=== PATIENT | female | born 1980 | race Two or more races ===

== ENCOUNTER 2016-08-12 17:30 | Observation (INO) | payer MEDICAID, OTHER ==
[~2016-08-12 17:30] MED LIST: DOC100C PO
[2016-08-12 18:50] LABS: Urine Bilirubin Negative (Negative); Urine Blood 2+ /uL (Negative); Urine Color Yellow (Yellow); Urine Glucose Normal (Normal); Urine Ketone Negative (Negative); Urine Mucus FEW (None Seen); Urine Nitrite Negative (Negative); Urine RBC 212 /hpf (0 - 4); Urine Squamous Epithelial Cell FEW /hpf (<5); Urine Urobilinogen Normal (Negative); Urine pH 6.5 (5.0-8.0)
== END 2016-08-12 19:05 | disposition home or self-care (01) | DRG 955 ==
LOC: LDRP 17:30
PROVIDERS: ADMIT Obstetrics & Gynecology; ATTEND Obstetrics & Gynecology
DX: O23.40 Unspecified infection of urinary tract in pregnancy, unspecified trimester (principal); O26.899 Other specified pregnancy related conditions, unspecified trimester; M54.5 Low back pain; Z3A.00 Weeks of gestation of pregnancy not specified
CPT/HCPCS: 59025; 81001; 81002; 87086; G0378

== ENCOUNTER 2016-11-03 16:05 | Observation (INO) | payer MEDICAID | END 2016-11-03 17:15 | disposition home or self-care (01) | DRG 566 | LOC: LDRP 16:05 | PROVIDERS: ADMIT Specialist; ATTEND Specialist | DX: O24.410 Gestational diabetes mellitus in pregnancy, diet controlled (principal); O26.893 Other specified pregnancy related conditions, third trimester; R51 Headache; Z3A.32 32 weeks gestation of pregnancy | CPT/HCPCS: 59025; 81002; 82948; 82962; G0378 ==

== ENCOUNTER 2016-11-23 10:30 | Observation (INO) | payer MEDICAID | END 2016-11-23 11:42 | disposition home or self-care (01) | DRG 566 | LOC: LDRP 10:30 | PROVIDERS: ADMIT Obstetrics & Gynecology; ATTEND Obstetrics & Gynecology | DX: O24.419 Gestational diabetes mellitus in pregnancy, unspecified control (principal); Z3A.35 35 weeks gestation of pregnancy | CPT/HCPCS: 59025; 76805; 76818; 81002; G0378 ==

== ENCOUNTER 2016-11-30 12:20 | Observation (INO) | payer MEDICAID | END 2016-11-30 14:00 | disposition home or self-care (01) | DRG 566 | LOC: LDRP 12:20 | PROVIDERS: ADMIT Obstetrics & Gynecology; ATTEND Obstetrics & Gynecology | DX: O26.893 Other specified pregnancy related conditions, third trimester (principal); Z3A.36 36 weeks gestation of pregnancy | CPT/HCPCS: 59025; 76818; 81002; 82962; G0378 ==

== ENCOUNTER 2016-12-03 13:52 | Observation (INO) | payer MEDICAID ==
[~2016-12-03] VITALS: Ht 157.5 cm; Wt 79.4 kg
[2016-12-03] MEDS ORDERED: TERBUTALINE SULFATE 1 MG/ML 1ML VIAL SC ONE ×2 (16:04→16:15)
== END 2016-12-03 16:56 | disposition home or self-care (01) | DRG 566 ==
LOC: LDRP 13:52
PROVIDERS: ADMIT Obstetrics & Gynecology; ATTEND Obstetrics & Gynecology
DX: O24.419 Gestational diabetes mellitus in pregnancy, unspecified control (principal); Z3A.37 37 weeks gestation of pregnancy
CPT/HCPCS: 59025; 76805; 76818; 81002; 82948; 82962; 96372; G0378; J3105

== ENCOUNTER 2016-12-08 14:00 | Observation (INO) | payer MEDICAID ==
[2016-12-08 17:47] LABS: Urine Bilirubin Negative (Negative); Urine Color Yellow (Yellow); Urine Glucose TRACE mg/dL (Normal); Urine Ketone Negative (Negative); Urine Mucus FEW (None Seen); Urine Nitrite Negative (Negative); Urine RBC 80 /hpf (0 - 4); Urine Squamous Epithelial Cell MOD /hpf (<5); Urine pH 6.5 (5.0-8.0)
[2016-12-08 17:51] LABS: Urine Blood 1+ /uL (Negative)
== END 2016-12-08 15:45 | disposition home or self-care (01) | DRG 566 ==
LOC: LDRP 14:00
PROVIDERS: ADMIT Obstetrics & Gynecology; ATTEND Obstetrics & Gynecology
DX: O24.410 Gestational diabetes mellitus in pregnancy, diet controlled (principal); Z3A.37 37 weeks gestation of pregnancy
CPT/HCPCS: 59025; 76818; 81001; 81002; G0378

== ENCOUNTER 2016-12-14 15:55 | Observation (INO) | payer MEDICAID | END 2016-12-14 17:10 | disposition home or self-care (01) | DRG 566 | LOC: LDRP 15:55 | PROVIDERS: ADMIT Obstetrics & Gynecology; ATTEND Obstetrics & Gynecology | DX: O24.419 Gestational diabetes mellitus in pregnancy, unspecified control (principal); Z3A.38 38 weeks gestation of pregnancy | CPT/HCPCS: 59025; 76818; 81002; G0378 ==

== ENCOUNTER 2019-02-19 12:10 | Emergency (ER) | payer MEDICAID ==
[~2019-02-19] VITALS: Ht 157.5 cm; Wt 70.8 kg
[~2019-02-19 12:10] MED LIST changes: +GLYB5TAB8 PO; +PREN1MIS PO
[2019-02-19 13:14] LABS: Urine Bacteria NONE SEEN /hpf (None Seen); Urine Blood 2+ /uL (Negative); Urine Mucus FEW (None Seen); Urine Specific Gravity 1.022 (1.001-1.035); Urine WBC 17 /hpf (0 - 5)
[2019-02-19 13:15] LABS: Basophils # (auto) 0 uL; Basophils % (auto) 0.4 % (0.0-2.0); Eosinophils # (auto) 0 uL; Eosinophils % (auto) 0.5 % (0.0-7.0); Hematocrit 40.5 % (36.0-46.0); Hemoglobin 13.6 g/dL (12.2-16.2); Lymphocytes # (auto) 1.9 uL; Lymphocytes % (auto) 26.9 % (10.0-50.0); Mean Corpuscular Hemoglobin 30.9 pg (28.0-32.0); Mean Corpuscular Hgb Conc. 33.7 g/dL (32.0-36.0); Mean Corpuscular Volume 91.8 fL (80.0-100.0); Monocytes # (auto) 0.5 uL; Monocytes % (auto) 7.1 % (0.0-12.0); Neutrophils # (auto) 4.7 uL; Neutrophils % (auto) 65.1 % (37.0-80.0); Platelet Count (auto) 307 10^3/uL (140-450); Red Blood Cells 4.41 10^6/uL (4.0-5.20); Red Cell Distribution Width 13.8 % (11.8-14.3); White Blood Cell 7.1 10^3/uL (4.4-10.8)
[2019-02-19] MEDS ORDERED: MECLIZINE HCL 25 MG TAB PO ONE (13:30)
[2019-02-19 13:33] LABS: Albumin 3.9 g/dL (3.4-5.0); BUN/Creatinine Ratio 12.2; Calcium 8.9 mg/dL (8.5-10.1); Potassium 3.8 mmol/L (3.5-5.1)
[2019-02-19 13:36] LABS: Bilirubin, Total 0.3 mg/dL (0.2-1.0); Total Protein 8.2 g/dL (6.4-8.2)
[2019-02-19 15:59] VITALS: BP 128/86
== END 2019-02-19 16:00 | disposition home or self-care (01) ==
LOC: ER 12:14
DX: F41.9 Anxiety disorder, unspecified (principal); N39.0 Urinary tract infection, site not specified; Z79.899 Other long term (current) drug therapy; Z98.51 Tubal ligation status
CPT/HCPCS: 36415; 70450; 80053; 81001; 81025; 85025; 93005; 99284; J8597

== ENCOUNTER 2023-09-16 20:36 | Emergency (ER) | payer MEDICAID ==
[~2023-09-16] VITALS: Ht 154.9 cm; Wt 74.7 kg
[2023-09-16 21:46] LABS: Basophils # (auto) 0 10 ^3/uL (0-0.2); Basophils % (auto) 0.4 % (0.0-2.0); Eosinophils # (auto) 0.3 10 ^3/uL (0-0.8); Eosinophils % (auto) 3.2 % (0.0-7.0); Hematocrit 38.2 % (36.0-46.0); Hemoglobin 12.8 g/dL (12.2-16.2); Lymphocytes # (auto) 2.6 10 ^3/uL (0.4-5.4); Lymphocytes % (auto) 27.8 % (10.0-50.0); Mean Corpuscular Hemoglobin 30.8 pg (28.0-32.0); Mean Corpuscular Hgb Conc. 33.5 g/dL (32.0-36.0); Monocytes # (auto) 0.7 10 ^3/uL (0-1.3); Monocytes % (auto) 7.8 % (0.0-12.0); Neutrophils # (auto) 5.6 10 ^3/uL (1.6-8.6); Neutrophils % (auto) 60.8 % (37.0-80.0); Red Blood Cells 4.15 10^6/uL (4.0-5.20); Red Cell Distribution Width 13.3 % (11.8-14.3); White Blood Cell 9.3 10^3/uL (4.4-10.8)
[2023-09-16 21:55] LABS: Anion Gap 9 (5-15); Carbon Dioxide 25 mmol/L (20-30); Chloride 104 mmol/L (98-107); Potassium 3.7 mmol/L (3.5-5.1); Sodium 138 mmol/L (136-145)
[2023-09-16 21:56] LABS: Calcium 9.7 mg/dL (8.5-10.1)
[2023-09-16 22:01] LABS: BUN/Creatinine Ratio 7.4 (10.0-20.0); Blood Urea Nitrogen 7 mg/dL (9-23); Glucose 100 mg/dL (74-106)
[2023-09-17 00:07] VITALS: BP 130/88; PULSE 82; RESP 17; TEMP 98; O2SAT 99
[2023-09-17] MEDS: ACETAMINOPHEN 325 MG TAB PO ONE (00:07)
== END 2023-09-17 00:31 | disposition home or self-care (01) ==
LOC: ER 20:36
DX: R10.32 Left lower quadrant pain (principal); R10.2 Pelvic and perineal pain; R51.9 Headache, unspecified; R42 Dizziness and giddiness; Z98.51 Tubal ligation status
CPT/HCPCS: 36415; 74176; 80048; 82962; 84702; 85025

== ENCOUNTER 2024-11-26 15:33 | Inpatient (IN) | payer MEDICAID ==
[~2024-11-26] VITALS: Ht 157.5 cm; Wt 81.3 kg
--- NOTE | 2024-11-26 16:02 | ED.PDOC ---
HPI Comments 44 y.o female presents to the ED for a chief complaint of left sided chest pain associated with palpitations, SOB, nausea, dizziness and left arm numbness x 1 day. Patient describes pain as a pressure sensation with cramping to the left side of her body, rating a 10/10 on the pain scale. Patient denies any vomiting, fever, chills, back pain, abdominal pain or recent trauma to pain sites. She denies any medical history and is not on any medication at home at this time. No tobacco, alcohol or substance use reported. Chief Complaint: Chest Pain Time Seen by MD: 15:42 Primary Care Provider: DENIES Reviewed Notes: Nurses Notes, Medications, Allergies Allergies: Coded Allergies: No Known Drug Allergy (Verified Allergy, Unknown, 08/01/15) Home Meds Active Scripts Docusate Sodium (COLACE CAPSULE) 100 Mg Cp, 100 MG PO BID, #60 CP Prov:ROSEANN FINLEY MD 08/04/15 Reported Medications Vit W/ Ferrous Fumara (Pnv Plus Multivi 27-1 & 312 mg) 1 Mis Mis, 1 TAB PO DAILY 12/17/16 Glyburide (Glyburide) 5 Mg Tab, 5 MG PO DAILY for 30 Days, MG 12/17/16 Information Source: Patient Mode of Arrival: Ambulatory Severity: Moderate Timing: Days (1) Duration: Since onset Location: Chest (L) Quality: Pressure Onset: At Rest Cardiac Risk Factors: None PE Risk Factors: None History of: None Modifying Factors: Nothing Associated Signs and Symptoms: SOB, Palpitations, N/V Past Medical History PAST MEDICAL HISTORY: Denies Surgical History: Appendectomy, , 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 Family History Family History: Reviewed,noncontributory to illness Social History Smoker: Non-Smoker Alcohol: Denies ETOH Use Drugs: Denies Drug Use Lives In: Home Constitutional: denies: chills, diaphoresis, fatigue, fever, malaise, sweats, weakness, others EENTM: denies: blurred vision, double vision, ear bleeding, ear discharge, ear drainage, ear pain, ear ringing, eye pain, eye redness, hearing loss, mouth pain, mouth swelling, nasal discharge, nose bleeding, nose congestion, nose pain, photophobia, tearing, throat pain, throat swelling, voice changes, others Respiratory: reports: SOB at rest, shortness of breath; denies: cough, hemoptysis, orthopnea, SOB with excertion, stridor, wheezing, others Cardiovascular: reports: chest pain, left arm pain, palpitations; denies: dizzy spells, diaphoresis, Dyspnea on exertion, edema, irregular heart beat, lightheadedness, PND, syncope, others Gastrointestinal: reports: nausea; denies: abdomen distended, abdominal pain, blood streaked bowels, constipated, diarrhea, dysphagia, difficulty swallowing, hematemesis, melena, poor appetite, poor fluid intake, rectal bleeding, rectal pain, vomiting, others Genitourinary: denies: abnormal vagina bleeding, burning, dyspareunia, dysuria, flank pain, frequency, hematuria, incontinence, pain, , vagina discharge, urgency, others Neurological: denies: dizziness, fainting, headache, left sided numbness, left sided weakness, numbness, paresthesia, pre-existing deficit, right sided numbness, right sided weakness, seizure, speech problems, tingling, tremors, weakness, others Musculoskeletal: denies: back pain, gout, joint pain, joint swelling, muscle pain, muscle stiffness, neck pain, others Integumetry: denies: bruises, change in color, change in hair/nails, dryness, laceration, lesions, lumps, rash, wounds, others Allergic/Immunocompromised: denies: Difficulty Healing, Frequent Infections, Hives, Itching, others Hematologic/Lymphatic: denies: anemia, blood clots, easy bleeding, easy bruising, swollen glands, others Endocrine: denies: excessive hunger, excessive sweating, excessive thirst, excessive urination, flushing, intolerance to cold, intolerance to heat, unexplained weight gain, unexplained weight loss, others Psychiatric: denies: anxiety, bipolar disorder, depression, hopeless, panic disorder, schizophrenia, sleepless, suicidal, others All Other Systems: Reviewed and Negative Physical Exam General Appearance: Moderate Distress HEENT: Normal ENT Inspection, Pharynx Normal, TMs Normal Neck: Full Range of Motion, Non-Tender, Normal, Normal Inspection Respiratory: Chest Non-Tender, Lungs Clear, No Accessory Muscle Use, No Respiratory Distress, Normal Breath Sounds Cardiovascular: No Edema, No JVD, No Murmur, No Gallop, Normal Peripheral Pulses, Regular Rate/Rhythm Breast Exam: Deferred Gastrointestinal: No Organomegaly, Non Tender, No Pulsatile Mass, Normal Bowel Sounds, Soft Genitalia: Deferred Pelvic: Deferred Rectal: Deferred Extremities: No calf tenderness, Normal capillary refill, Normal inspection, Normal range of motion, Non-tender, No pedal edema Musculoskeletal : Apperance: Normal Neurologic: Alert, cotton ball machine tender II-XII nml as Tested, No Motor Deficits, Normal Affect, Normal Mood, No Sensory Deficits Cerebellar Function: Normal Reflexes: Normal Skin: Dry, Normal Color, Warm Lymphatic: No Adenopathy EKG EKG : Pulse Rate (adult): 81 Cardiac Rhythm: NSR Was a procedure done? Was a procedure done?: No CP Differential Dx Differential Diagnosis: Anxiety / Panic Attack, Electrolyte Disorder, Sinus Tachycardia Differential Diagnosis: Angina, Aortic dissection, Chest Wall Pain, Cholelithiasis, Costochondritis, Esophageal reflux/spasm, Gastritis, Myocardial Infarction, Pericarditis X-Ray, Labs, Meds, VS Vital Signs Date Time Temp Pulse Resp B/P (MAP) Pulse Ox O2 Delivery O2 Flow Rate FiO2 11/26/24 19:26 97.7 66 20 121/75 (90) 99 97.7 11/26/24 18:00 97.7 66 20 120/72 (88) 98 97.7 11/26/24 17:45 69 11/26/24 16:02 81 11/26/24 15:55 98.0 79 20 121/70 (87) 100 98.0 11/26/24 15:47 81 Lab Test 11/26/24 16:53 11/26/24 15:54 Range/Units Troponin I High Sensitivity < 3 L < 3 L </=34 ng/L White Blood Count 6.9 4.4-10.8 10^3/uL Red Blood Count 4.17 4.0-5.20 10^6/uL Hemoglobin 12.7 12.2-16.2 g/dL Hematocrit 37.2 36.0-46.0 % Mean Corpuscular Volume 89.2 80.0-100.0 fL Mean Corpuscular Hemoglobin 30.4 28.0-32.0 pg Mean Corpuscular Hemoglobin Concent 34.1 32.0-36.0 g/dL Red Cell Distribution Width 14.0 11.8-14.3 % Platelet Count 296 140-450 10^3/uL Mean Platelet Volume 8.9 6.9-10.8 fL Neutrophils (%) (Auto) 54.9 37.0-80.0 % Lymphocytes (%) (Auto) 34.5 10.0-50.0 % Monocytes (%) (Auto) 8.0 0.0-12.0 % Eosinophils (%) (Auto) 2.2 0.0-7.0 % Basophils (%) (Auto) 0.4 0.0-2.0 % Neutrophils # (Auto) 3.8 1.6-8.6 10 ^3/uL Lymphocytes # (Auto) 2.4 0.4-5.4 10 ^3/uL Monocytes # (Auto) 0.6 0-1.3 10 ^3/uL Eosinophils # (Auto) 0.2 0-0.8 10 ^3/uL Basophils # (Auto) 0 0-0.2 10 ^3/uL Nucleated Red Blood Cells 0.0 % D-Dimer, Quantitative 1.15 H 0.0-0.49 mg/L FEU Sodium Level 143 136-145 mmol/L Potassium Level 3.8 3.5-5.1 mmol/L Chloride Level 108 H 98-107 mmol/L Carbon Dioxide Level 26 20-31 mmol/L Anion Gap 9 5-15 Blood Urea Nitrogen 8 L 9-23 mg/dL Creatinine 1.13 H 0.550-1.02 mg/dL Glomerular Filtration Rate Calc 62 >90 mL/min BUN/Creatinine Ratio 7.1 L 10.0-20.0 Serum Glucose 107 H 74-106 mg/dL Calcium Level 9.8 8.7-10.4 mg/dL IV Hep-Lock was established The patient's CBC is within normal limits The D-dimer is 0.15 chemistry panel is within limits The troponin level x2 is negative The patient is saturating at 99-100% The chest x-ray is negative The patient is being admitted at this time Images Reviewed?: Images reviewed and evaluated by me Time of 1ST Reevaluation: 17:00 Reevaluation 1ST: Unchanged Patient Education/Counseling: Diagnosis, Treatment, Prognosis Family Education/Counseling: No Family Present SEPSIS Sepsis Screen Physician Orders Chest Portable (11/26/24 15:47) Heplock Iv (11/26/24 15:47) String Winding Machine Operator (11/26/24 15:47) Blood Pressure (11/26/24 15:47) Pulse Oximetry (11/26/24 15:47) Electrocardigram (11/26/24 16:47) Electrocardigram (11/26/24 18:47) Test, Urine (11/26/24 15:47) Aspirin Tablet (11/27/24 10:00) Allergies (11/26/24 19:44) Code Status (11/26/24 19:44) Sodium Chloride Lock (Saline Lock Ns) (11/26/24 22:00) Oxygen Per Hour (11/26/24 19:44) Hydrocodone-Acet 5/325mg Tab (Hollister 5/32 (11/26/24 19:45) Ondansetron Hcl (Zofran) (11/26/24 19:45) Docusate Sodium Capsule (Colace Capsule) (11/26/24 19:45) Complete Blood Count (11/27/24 04:00) Comprehensive Metabolic Panel (11/27/24 04:00) Cardiac Diet-2gna,Lofat,Lochol (11/27/24 Breakfast) Condition: Serious (11/26/24 19:44) Acetaminophen Tablet (Tylenol Tablet) (11/26/24 19:45) Bedrest With Bathroom Privileg (11/26/24 19:44) Sequential Compression Device (11/26/24 ) Vital Signs Date Time Temp Pulse Resp B/P (MAP) Pulse Ox O2 Delivery O2 Flow Rate FiO2 11/26/24 19:26 97.7 66 20 121/75 (90) 99 97.7 11/26/24 18:00 97.7 66 20 120/72 (88) 98 97.7 11/26/24 17:45 69 11/26/24 16:02 81 11/26/24 15:55 98.0 79 20 121/70 (87) 100 98.0 11/26/24 15:47 81 Laboratory Tests Test 11/26/24 15:54 White Blood Count 6.9 10^3/uL (4.4-10.8) Departure 1 Departure Time of Disposition: 20:15 Impression: Primary Impression: Acute myocardial ischemia Disposition: 09 ADMITTED INPATIENT Admit to: Tele Condition: Fair Critical Care Note Critical Care Time?: Yes (45 min-critical care time only) Stability Stability form required: Yes Unstable for transfer: Telemetry monitoring (Telemetry monitoring required), ED Physician Assesment (Clinical assesment) Heart Score Heart Score: Heart Score Response (Comments) Value History Slightly Suspicious 0 EKG Normal 0 Age <45 0 Risk Factors No known risk factors 0 Troponin Normal limit 0 Total 0 I personally scribed for MOON DUPREE MD ([email or web address]) on 11/26/24 at 16:02. Electronically submitted by Veronica Roa ([facility]). MOON DUPREE MD Nov 26, 2024 16:02
[2024-11-26 16:12] LABS: Hematocrit 37.2 % (36.0-46.0); Hemoglobin 12.7 g/dL (12.2-16.2); Mean Corpuscular Hemoglobin 30.4 pg (28.0-32.0); Mean Corpuscular Volume 89.2 fL (80.0-100.0); Nucleated Red Blood Cells % 0.0 %
[2024-11-26 16:24] LABS: Potassium 3.8 mmol/L (3.5-5.1); Sodium 143 mmol/L (136-145)
[2024-11-26 16:25] LABS: Anion Gap 9 (5-15); Carbon Dioxide 26 mmol/L (20-31)
[2024-11-26 16:26] LABS: Calcium 9.8 mg/dL (8.7-10.4)
[2024-11-26 16:28] LABS: Chloride 108 mmol/L (98-107)
[2024-11-26 16:30] LABS: BUN/Creatinine Ratio 7.1 (10.0-20.0)
[2024-11-26 16:31] LABS: Blood Urea Nitrogen 8 mg/dL (9-23); Glucose 107 mg/dL (74-106)
--- NOTE | 2024-11-26 17:47 | ECG ---
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
[2024-11-26] MEDS ORDERED: DOCUSATE SOD 100 MG CAP PO PRN (19:45)
--- NOTE | 2024-11-26 20:04 | DVH ---
CHEST RADIOGRAPH Indication: cp Technique: Single frontal view of the chest was obtained COMPARISON: None FINDINGS: Lines and Tubes: None Lungs: Clear. Evidence of small calcified granuloma at the right lung apex. Pleura: No pleural effusion. No pneumothorax. Cardiomediastinal contours: Unremarkable Bones: Unremarkable IMPRESSION: No abnormality.
--- NOTE | 2024-11-26 21:56 | DVHHP2 ---
History of Present Illness Reason for Visit: Acute chest pain History of Present Illness The patient is a 44-year-old female who denies past medical history presented to [facility] ED with complaint of left-sided chest pain. Patient reports she has been experiencing midsternal chest pain, radiating to the left shoulder, left arm, rating 10/10 numeric scale, associated with numbness, getting worse that prompted this visit. Patient was seen and evaluated in the ED, laboratory data shows WBC 6.9, platelets 296, sodium 143, potassium 3.8, BUN 8, creatinine 1.13, GFR 62, glucose 107, calcium 9.6, troponin < 3, D-dimer 1.15, blood pressure 121/75, heart rate 66, temperature 97.7 F, O2 saturation 9 9% on room air. Chest x-ray show no acute disease. Patient was given aspirin 325 mg p.o. x1, please see medication orders section in the computer. On my assessment patient denied chest pain at this moment, no headache, no dizziness, no diaphoresis, no shortness of breath, no nausea, no vomiting, no fever, no chills. Patient was admitted for further evaluation and medical management. Past Medical History Denies past medical history Past Surgical History Appendectomy, , Tubal Ligation, Ectopic Family History Reviewed, noncontributory to the management of this case. Past Social History The patient lives at home, denies smoking, alcohol or illicit drugs abuse. Review of Systems Constitutional: No: Fever, Chills, Sweats, Weakness, Malaise, Other Eyes: No: Pain, Vision change, Conjunctivae inflammation, Eyelid inflammation, Other, Redness ENT: No: Ear pain, Ear discharge, Nose pain, Nose discharge, Nose congestion, Mouth pain, Mouth swelling, Throat pain, Throat swelling, Other Respiratory: Shortness of breath, Other (SOB at rest); No: Cough, Dry, SOB with excertion, Wheezing, Hemoptysis, Pleuritic Pain, Sputum, Wheezing Cardiovascular: Chest Pain, Palpitations, Other (Left arm pain); No: Orthopnea, Paroxysmal Noc. Dyspnea, Edema, Lt Headedness Gastrointestinal: No: Nausea, Vomiting, Abdominal Pain, Diarrhea, Constipation, Melena, Hematochezia, Other Genitourinary: No Dysuria, No Frequency, No Incontinence, No Hematuria, No Retention, No Other Musculoskeletal: No: other, neck pain, shoulder pain, arm pain, back pain, hand pain, leg pain, foot pain Skin: No: Rash, Lesions, Jaundice, Bruising, Other Neurological: No: Weakness, Numbness, Incoordination, Change in speech, Confusion, Seizures, Other Allergies: Coded Allergies: No Known Drug Allergy (Verified Allergy, Unknown, 08/01/15) Medications Current Medications Medications Dose Ordered Sig/Kyle Route Start Time Stop Time Status Last Admin Dose Admin Aspirin 81 mg DAILY PO 11/27/24 10:00 Sodium Chloride 10 ml Q8HR IV 11/26/24 22:00 Acetaminophen/ Hydrocodone Bitart 1 tab Q4HP PRN PO 11/26/24 19:45 Ondansetron HCl 4 mg Q4HP PRN IV 11/26/24 19:45 Docusate Sodium 100 mg BIDPRN PRN PO 11/26/24 19:45 Acetaminophen 650 mg Q6HP PRN PO 11/26/24 19:45 Exam Vital Signs Vital Signs Date Time Temp Pulse Resp B/P (MAP) Pulse Ox O2 Delivery O2 Flow Rate FiO2 11/26/24 19:26 97.7 66 20 121/75 (90) 99 97.7 General Appearance: Alert, Oriented X3, Cooperative, No acute distress HEENT: Atraumatic, PERRLA, EOMI, Mucous membr. moist/pink Respiratory: Clear to auscultation, Normal air movement Cardiovascular: Normal S1, Normal S2, No murmurs, Other (Irregular rate) Abdominal: Normal bowel sounds, Soft, No tenderness, No hepatospenomegaly, No masses Extremities: No clubbing, No cyanosis, No edema, Normal pulses, No tenderness/swelling Skin: No breakdown, No significant lesion Neuro: Normal gait, Normal speech, Strength at 5/5 X4 ext, Normal tone, Sensation intact, Cranial nerves 3-12 NL, Reflexes 2+ Psych/Mental Status: Mental status NL, Mood NL Labs/Xrays Labs Test 11/26/24 16:53 11/26/24 15:54 Range/Units Troponin I High Sensitivity < 3 L </=34 ng/L White Blood Count 6.9 4.4-10.8 10^3/uL Red Blood Count 4.17 4.0-5.20 10^6/uL Hemoglobin 12.7 12.2-16.2 g/dL Hematocrit 37.2 36.0-46.0 % Mean Corpuscular Volume 89.2 80.0-100.0 fL Mean Corpuscular Hemoglobin 30.4 28.0-32.0 pg Mean Corpuscular Hemoglobin Concent 34.1 32.0-36.0 g/dL Red Cell Distribution Width 14.0 11.8-14.3 % Platelet Count 296 140-450 10^3/uL Mean Platelet Volume 8.9 6.9-10.8 fL Neutrophils (%) (Auto) 54.9 37.0-80.0 % Lymphocytes (%) (Auto) 34.5 10.0-50.0 % Monocytes (%) (Auto) 8.0 0.0-12.0 % Eosinophils (%) (Auto) 2.2 0.0-7.0 % Basophils (%) (Auto) 0.4 0.0-2.0 % Neutrophils # (Auto) 3.8 1.6-8.6 10 ^3/uL Lymphocytes # (Auto) 2.4 0.4-5.4 10 ^3/uL Monocytes # (Auto) 0.6 0-1.3 10 ^3/uL Eosinophils # (Auto) 0.2 0-0.8 10 ^3/uL Basophils # (Auto) 0 0-0.2 10 ^3/uL Nucleated Red Blood Cells 0.0 % D-Dimer, Quantitative 1.15 H 0.0-0.49 mg/L FEU Sodium Level 143 136-145 mmol/L Potassium Level 3.8 3.5-5.1 mmol/L Chloride Level 108 H 98-107 mmol/L Carbon Dioxide Level 26 20-31 mmol/L Anion Gap 9 5-15 Blood Urea Nitrogen 8 L 9-23 mg/dL Creatinine 1.13 H 0.550-1.02 mg/dL Glomerular Filtration Rate Calc 62 >90 mL/min BUN/Creatinine Ratio 7.1 L 10.0-20.0 Serum Glucose 107 H 74-106 mg/dL Calcium Level 9.8 8.7-10.4 mg/dL PATIENT: ARTHUR CANO DACCT: [id number] UNIT: [id number] : 1980 LOC: ER ROOM / BED: / AGE / SEX: 44 / F ADM STATUS: REG ER SERVICE 1547 ORDERING PHYSICIAN: MOON DUPREE MD PROCEDURE(s): CXRP - CHEST PORTABLE REASON: cp ORDER NUMBER(s): [id number], ACCESSION NUMBER(s): [id number] CHEST RADIOGRAPH Indication: cp Technique: Single frontal view of the chest was obtained COMPARISON: None FINDINGS: Lines and Tubes: None Lungs: Clear. Evidence of small calcified granuloma at the right lung apex. Pleura: No pleural effusion. No pneumothorax. Cardiomediastinal contours: Unremarkable Bones: Unremarkable IMPRESSION: No abnormality. Assessment/Plan Assessment/Plan Acute chest pain Elevated D-dimer Acute myocardial ischemia Plan 1. Admit to telemetry unit 2. Breathing treatment 3. Pain control management 4. Management of fluids and electrolytes 5. Consultation for hospitalist 6. Diagnostic tests CT angiography chest 7. DVT prophylaxis on aspirin 8. Repeat labs CBC, CMP in a.m. 9. Continue with current medical management 10. Treatment plan discussed with patient and RN. Patient verbalized understanding. Plan discussed with: Patient, Other (RN) My Orders Orders - ZULEMA FLORES DNP Procedure Category Date Status Time Aspirin Tablet PHA 11/27/24 In Process 10:00 Allergies EDY 11/26/24 In Process 19:44 Code Status CODE 11/26/24 Transmitted 19:44 Sodium Chloride Lock PHA 11/26/24 In Process (Saline Lock Ns) 22:00 Oxygen Per Hour RT 11/26/24 Transmitted 19:44 Hydrocodone-Acet PHA 11/26/24 In Process 5/325mg Tab (Diana 19:45 Ondansetron Hcl PHA 11/26/24 In Process (Zofran) 19:45 Docusate Sodium PHA 11/26/24 In Process Capsule (Colace 19:45 Complete Blood Count LAB 11/27/24 Verified 04:00 Comprehensive LAB 11/27/24 Verified Metabolic Panel 04:00 Cardiac DIET 11/27/24 Transmitted Diet-2gna,Lofat,Lochol Breakfast Condition: Serious EDY 11/26/24 In Process 19:44 Acetaminophen Tablet PHA 11/26/24 In Process (Tylenol Tablet) 19:45 Bedrest With Bathroom EDY 11/26/24 In Process Privileg 19:44 Sequential EDY 11/26/24 In Process Compression Device Admit ADMIT 11/26/24 Verified 21:55 Nitroglycerin [facility] 11/26/24 Verified Sublingual (Ntrostat 22:00 Morphine Sulfate [facility] 11/26/24 Verified Injection 22:00 Stat Ekg For Chest [facility] 11/26/24 Verified Pain 21:55 Notify Md Of Changes [facility] 11/26/24 Verified From Base 21:55 Heel Sprayer For [facility] 11/26/24 Verified 24 Hours 21:55 Emergency Dysrhythmia [facility] 11/26/24 Verified Protocol 21:55 Rhythm Strips Once [facility] 11/26/24 Verified Every Shift 21:55 Oxygen By Nasal 11/26/24 Verified Cannula 21:55 Problem List: (1) Acute chest pain (2) Elevated d-dimer (3) Acute myocardial ischemia Date of Service: Nov 26, 2024 Billing Provider: ZULEMA FLORES DNP Common Visit Codes: [id number] INP/OBS CARE (HIGH) ZULEMA FLORES DNP Nov 26, 2024 21:56
[2024-11-26] MEDS ORDERED: MORPHINE SULFATE INJ 2 MG/ml SYRG IV PRN (22:00)
[2024-11-26] MEDS: NITROGLYCERIN 0.4 MG SL TAB SL PRN (23:17)
[2024-11-26] MEDS: SODIUM CHLOR 0.9% PF (SALINE LOCK) 10ML VIAL/SYR IV SCH (23:39)
[2024-11-26] MEDS: IOHEXOL 350 MG/ML 100ML IJ ONE (23:50)
[2024-11-27] VITALS (8 sets, daily range): BP systolic 102–126; BP diastolic 62–80; PULSE 50–84; RESP 16–18; TEMP 97.5–98.3; O2SAT 94–99
--- NOTE | 2024-11-27 01:10 | DVH ---
CTA Chest with intravenous contrast INDICATION: Elevated D-dimer COMPARISON: None TECHNIQUE: Multidetector spiral CTA of the chest was performed of the chest with intravenous contrast . PULMONARY ANGIOGRAPHY PROTOCOL was utilized using a bolus-tracking technique centered on the main p ulmonary artery. Axial, coronal and sagittal multiplanar and MIP reformats were performed. Radiation Dose : 1. Chest: CTDI volume is 26.43 mGy. Dose-length product is 1046.03 mGy*cm The dose indicators for CT are the volume Computed Tomography (CT) Dose Index (CTDIvol) and the Dose Length Product (DLP), and are measured in units of mGy and mGy-cm, respectively. These indicators are not patient dose, but values generated from the CT scanner acquisition factors. The report includes radiation exposure data for exposures received during this examination. Findings: Pulmonary artery: No pulmonary embolism. The main pulmonary artery measures 2.3 cm and the ascending thoracic aorta measures 2.8 cm. Lower neck: Normal thyroid. Lungs: No focal consolidation, pleural effusion or pneumothorax. Lateral right apical calcified granu flavia. Heart/Vascular Structures: Normal heart size. No pericardial effusion. Lymph Nodes: No adenopathy Musculoskeletal: No acute osseous abnormality. Soft tissues: Normal. Upper abdomen: Limited portions of the upper abdomen are unremarkable. IMPRESSION: 1. No pulmonary embolism. 2. No acute thoracic finding.
[2024-11-27 06:35] LABS: Hematocrit 39.6 % (36.0-46.0); Hemoglobin 13.5 g/dL (12.2-16.2); Mean Corpuscular Hemoglobin 30.8 pg (28.0-32.0); Mean Corpuscular Volume 90.2 fL (80.0-100.0); Nucleated Red Blood Cells % 0.1 %
[2024-11-27 06:53] LABS: Alanine Aminotransferase 37 U/L (7-40); Albumin 4.2 g/dL (3.2-4.8); Alkaline Phosphatase 86 U/L (46-116); BUN/Creatinine Ratio 9.9 (10.0-20.0); Blood Urea Nitrogen 9 mg/dL (9-23); Calcium 9.5 mg/dL (8.7-10.4); Chloride 104 mmol/L (98-107); Glucose 105 mg/dL (74-106); Potassium 4.0 mmol/L (3.5-5.1); Sodium 140 mmol/L (136-145); Total Protein 7.4 g/dL (5.7-8.2)
[2024-11-27 06:57] LABS: Bilirubin, Total 0.2 mg/dL (0.2-1.0)
[2024-11-27 07:00] LABS: Anion Gap 10 (5-15); Carbon Dioxide 26 mmol/L (20-31)
--- NOTE | 2024-11-27 13:06 | DVHPN2 ---
Reviewed: Care Plan, H&P, Labs, Medications, Previous Orders, Radiology Changes from previous H/P or p: No Changes Eyes: No Pain, No Vision change, No Conjunctivae inflammation, No Eyelid inflammation, No Other, No Redness ENT: No Ear pain, No Ear discharge, No Nose pain, No Nose discharge, No Nose congestion, No Mouth pain, No Mouth swelling, No Throat pain, No Throat swelling, No Other Cardiovascular: Chest Pain, Palpitations; No Orthopnea, No Paroxysmal Noc. Dyspnea, No Edema, No Lt Headedness; Other (Left arm pain) Respiratory: No Cough, No Dry; Shortness of breath; No SOB with excertion, No Wheezing, No Hemoptysis, No Pleuritic Pain, No Sputum; Other (SOB at rest) Gastrointestinal: No Nausea, No Vomiting, No Abdominal Pain, No Diarrhea, No Constipation, No Melena, No Hematochezia, No Other Genitourinary: No Dysuria, No Frequency, No Incontinence, No Hematuria, No Retention, No Other Musculoskeletal: No other, No neck pain, No shoulder pain, No arm pain, No back pain, No hand pain, No leg pain, No foot pain Skin: No Rash, No Lesions, No Jaundice, No Bruising, No Other Objective Vitals Vital Signs Date Time Temp Pulse Resp B/P (MAP) Pulse Ox O2 Delivery O2 Flow Rate FiO2 11/27/24 12:38 97.9 67 16 113/71 (85) 99 97.9 11/27/24 08:00 Room Air* 0 21 Intake/Output Intake and Output 11/27/24 07:00 Intake Total 0 ml Balance 0 ml Intake Oral 0 ml Medications Current Medications Medications Dose Ordered Sig/Kyle Route Start Time Stop Time Status Last Admin Dose Admin Aspirin 81 mg DAILY PO 11/27/24 10:00 11/27/24 09:51 81 MG Sodium Chloride 10 ml Q8HR IV 11/26/24 22:00 11/27/24 06:00 10 ML Acetaminophen/ Hydrocodone Bitart 1 tab Q4HP PRN PO 11/26/24 19:45 Ondansetron HCl 4 mg Q4HP PRN IV 11/26/24 19:45 Docusate Sodium 100 mg BIDPRN PRN PO 11/26/24 19:45 Acetaminophen 650 mg Q6HP PRN PO 11/26/24 19:45 Nitroglycerin 0.4 mg Q5MINP PRN SL 11/26/24 22:00 11/26/24 23:17 0.4 MG Morphine Sulfate 2 mg Q30M PRN IV 11/26/24 22:00 Laboratory Results Laboratory Tests 11/27/24 05:55 Chemistry Test 11/26/24 15:54 11/27/24 05:55 Calcium Level 9.8 mg/dL (8.7-10.4) 9.5 mg/dL (8.7-10.4) Albumin 4.2 g/dL (3.2-4.8) Total Protein 7.4 g/dL (5.7-8.2) Coagulation Test 11/26/24 15:54 D-Dimer, Quantitative 1.15 mg/L FEU (0.0-0.49) H LFT Test 11/27/24 05:55 Alanine Aminotransferase (ALT) 37 U/L (7-40) Alkaline Phosphatase 86 U/L (46-116) Aspartate Amino Transferase (AST) 21 U/L (13-40) Total Bilirubin 0.2 mg/dL (0.2-1.0) Urinalysis Test 11/26/24 15:54 Urine Test Pending Labs and/or images reviewed: Labs reviewed by me, Image(s) reviewed by me Assessment/Plan Assessment/Plan Chest pain probably noncardiac: Troponin negative x3 cardiology consult for , will check urine drug screen, TSH, lipid panel Elevated D-dimer 1.15, PE ruled out Plan discussed with: Patient My Orders Orders - MIA ELIZONDO MD Procedure Category Date Status Time * Cardiology Consult CONS 11/27/24 Verified 13:02 Date of Service: Nov 27, 2024 Billing Provider: MIA ELIZONDO MD Common Visit Codes: [id number] INP/OBS CARE(HIGH) MIA ELIZONDO MD Nov 27, 2024 13:06
[2024-11-27 13:38] LABS: HDL Cholesterol 42 mg/dL (40-59); Triglycerides 292 mg/dL (< 150)
[2024-11-27 13:39] LABS: Cholesterol 221 mg/dL (< 200)
[2024-11-27] MEDS: ONDANSETRON HCL 4 MG/2 ML VIAL IV PRN (13:51)
--- NOTE | 2024-11-27 15:02 | DVH ---
CLINICAL INFORMATION: Persistent headache. TECHNIQUE: Axial imaging was obtained through the brain without contrast. Coronal and sagittal reform atted images were obtained, reviewed, and stored. Images were reviewed in brain and bone windows. Al l CT scans at this medical facility are performed using dose modulation techniques as appropriate to a performed exam including the following: Automated exposure control was utilized; adjustment of the MA and/or KV according to patient size; and use of iterative reconstruction technique. CTDIvol = 53.1 4 mGy DLP = 959.68 mGy-cm COMPARISON: HEAD WITHOUT CONTRAST on DOS: 02/19/19 FINDINGS: There is no acute intracranial hemorrhage. No mass effect or midline shift. The ventricles and sulci are within normal limits in size for age. Basal cisterns are patent. The calvarium is unre markable. Paranasal sinuses and mastoid air cells are clear. IMPRESSION: No CT evidence of acute intracranial abnormality.
--- NOTE | 2024-11-27 15:03 | DVHINCON2 ---
Date Seen: Nov 27, 2024 Referring Physician MD Jaden Reason for Consultation Chest pain History of Present Illness This is a pleasant 44-year-old Azeri speaking mostly female who presented to the emergency room with a chief complaint of chest pain since Tuesday. Describes the chest pain as left-sided, unprovoked radiating to her left lip as a numbness sensation, radiating to the left upper and lower extremity as a tingling sensation, and persistent until yesterday. The patient also reports a persistent headache for the past two months. At time of assessment she denied any further chest pain but did complain of tingling to her left fingers and left lower extremity. She underwent a 12 lead electrocardiogram revealing a normal sinus rhythm. Serial troponin levels are negative. Denies any past medical history. Past Medical History Past medical history reviewed. No other significant than mentioned above. Past Surgical History Appendectomy Bilateral tubal ligation Ectopic Family History: Family history: Hypertension Family History Family history reviewed. Social History Denies the use of illicit drugs, alcohol, or tobacco use. Allergies: Coded Allergies: No Known Drug Allergy (Verified Allergy, Unknown, 08/01/15) Home Meds Active Scripts Docusate Sodium (COLACE CAPSULE) 100 Mg Cp, 100 MG PO BID, #60 CP Prov:ROSEANN FINLEY MD 08/04/15 Reported Medications Vit W/ Ferrous Fumara (Pnv Plus Multivi 27-1 & 312 mg) 1 Mis Mis, 1 TAB PO DAILY 12/17/16 Glyburide (Glyburide) 5 Mg Tab, 5 MG PO DAILY for 30 Days, MG 12/17/16 Home Meds Home medications reviewed. Current Medications Current Medications Medications (Trade) Dose Ordered Sig/Kyle Route PRN Reason Start Time Stop Time Status Last Admin Aspirin 81 mg DAILY PO 11/27/24 10:00 11/27/24 09:51 Sodium Chloride (Saline Lock Ns) 10 ml Q8HR IV 11/26/24 22:00 11/27/24 13:55 Acetaminophen/ Hydrocodone Bitart ([place] 5/325MG Tab) 1 tab Q4HP PRN PO MODERATE PAIN (4-6 PAIN SCALE) 11/26/24 19:45 Ondansetron HCl (Zofran) 4 mg Q4HP PRN IV NAUSEA / VOMITING 11/26/24 19:45 11/27/24 13:51 Docusate Sodium (Colace Capsule) 100 mg BIDPRN PRN PO FOR CONSTIPATION 11/26/24 19:45 Acetaminophen (Tylenol Tablet) 650 mg Q6HP PRN PO PAIN SCALE 1-3 OR TEMP>100.4 11/26/24 19:45 Nitroglycerin (Ntrostat Sublingual) 0.4 mg Q5MINP PRN SL FOR CHEST PAIN 11/26/24 22:00 11/26/24 23:17 Morphine Sulfate 2 mg Q30M PRN IV FOR CHEST PAIN 11/26/24 22:00 Review of Systems Constitutional: No symptom reported Ears, Nose, & Throat: No symptom reported Eyes: No symptom reported Neurological: No symptoms reported Pulmonary/Respiratory: No symptom reported Cardiovascular: Chest pain Gastrointestinal: No symptom reported Genitourinary: No symptom reported Musculoskeletal: Left upper and lower extremity numbness Skin: No symptom reported Psychiatric: No symptom reported Endocrine: No symptom reported Hemotologic/Lymphatic: No symptom reported Vital Signs Vital Signs Date Time Temp Pulse Resp B/P (MAP) Pulse Ox O2 Delivery O2 Flow Rate FiO2 11/27/24 12:38 97.9 67 16 113/71 (85) 99 97.9 11/27/24 08:00 Room Air* 0 21 Physical Exam General Appearance: Cooperative. Well developed. Obese. In no acute distress Head Exam: Normal inspection Neck Exam: Normal inspection. Non-tender. Normal alignment Pulmonary/Respiratory: Chest non-tender. Clear bilateral breath sounds Cardiovascular/Chest: Regular rate and rhythm. S1, S2. NSR. No murmurs. No JVD. Peripheral Pulses: 2+ Radial (R). 2+ Radial (L). 2+ Pedal (R). 2+ Pedal (L) Abdominal Exam: Normal bowel sounds. Soft. Nontender. No hepatospenomegaly. No masses Ankle Exam: Negative ankle edema Lower extremities: Negative lower extremity edema Neuro/Mental Status: A&O x4. Coherent Thoughts/Psych: Normal thought pattern. Appropriate mood and affect. Good judgement and insight Appearance: In no acute distress Skin Exam: Normal inspection. Normal color. Warm. Dry Labs/Diagnostic Data Labs Test 11/27/24 05:55 11/26/24 16:53 11/26/24 15:54 Range/Units White Blood Count 7.0 4.4-10.8 10^3/uL Red Blood Count 4.39 4.0-5.20 10^6/uL Hemoglobin 13.5 12.2-16.2 g/dL Hematocrit 39.6 36.0-46.0 % Mean Corpuscular Volume 90.2 80.0-100.0 fL Mean Corpuscular Hemoglobin 30.8 28.0-32.0 pg Mean Corpuscular Hemoglobin Concent 34.2 32.0-36.0 g/dL Red Cell Distribution Width 13.7 11.8-14.3 % Platelet Count 291 140-450 10^3/uL Mean Platelet Volume 9.2 6.9-10.8 fL Neutrophils (%) (Auto) 61.5 37.0-80.0 % Lymphocytes (%) (Auto) 29.6 10.0-50.0 % Monocytes (%) (Auto) 6.9 0.0-12.0 % Eosinophils (%) (Auto) 1.7 0.0-7.0 % Basophils (%) (Auto) 0.3 0.0-2.0 % Neutrophils # (Auto) 4.3 1.6-8.6 10 ^3/uL Lymphocytes # (Auto) 2.1 0.4-5.4 10 ^3/uL Monocytes # (Auto) 0.5 0-1.3 10 ^3/uL Eosinophils # (Auto) 0.1 0-0.8 10 ^3/uL Basophils # (Auto) 0 0-0.2 10 ^3/uL Nucleated Red Blood Cells 0.1 % Sodium Level 140 136-145 mmol/L Potassium Level 4.0 3.5-5.1 mmol/L Chloride Level 104 98-107 mmol/L Carbon Dioxide Level 26 20-31 mmol/L Anion Gap 10 5-15 Blood Urea Nitrogen 9 9-23 mg/dL Creatinine 0.91 0.550-1.02 mg/dL Glomerular Filtration Rate Calc 81 >90 mL/min BUN/Creatinine Ratio 9.9 L 10.0-20.0 Serum Glucose 105 74-106 mg/dL Calcium Level 9.5 8.7-10.4 mg/dL Total Bilirubin 0.2 0.2-1.0 mg/dL Aspartate Amino Transferase (AST) 21 13-40 U/L Alanine Aminotransferase (ALT) 37 7-40 U/L Alkaline Phosphatase 86 46-116 U/L Total Protein 7.4 5.7-8.2 g/dL Albumin 4.2 3.2-4.8 g/dL Triglycerides Level 292 H < 150 mg/dL Cholesterol Level 221 H < 200 mg/dL LDL Cholesterol 158 H < 100 mg/dL HDL Cholesterol 42 40-59 mg/dL Thyroid Stimulating Hormone (TSH) 2.81 0.55-4.78 uIU/mL Troponin I High Sensitivity < 3 L </=34 ng/L D-Dimer, Quantitative 1.15 H 0.0-0.49 mg/L FEU Assessment Noncardiac chest pain Rule out structural heart disease Rule out acute CVA Dyslipidemia, newly diagnosed Obesity Plan/Recommendation (Dr. Sam) The patient presents with noncardiac chest pain. We will continue further cardiac evaluation with a transthoracic echocardiogram to rule out structural heart disease. Given persistent headache with left-sided numbness/paresthesia rule out acute CVA/TIA. Initiate lipid lowering agent given newly diagnosed dyslipidemia. In the setting of an unremarkable echocardiogram, there is no further cardiac workup indicated at this time. Thank you for allowing us to participate in this patient's care. Please call if you have any questions or concerns. This medical document was created using an electronic medical record system with voice recognition software and computerized dictation system. Although this document has been carefully reviewed, there might still be some phonetic and typographical errors. Occasional wrong-word or ``sound-alike substitutions may have occurred due to the inherent limitations of voice recognition software. These areas are purely typographical due to imperfections of the software programs and do not reflect any compromise in the patient's medical care. Please read the chart carefully and recognize, using context, where these substitutions have occurred. Plan discussed with: Patient, Other NYHA Physical activity limitations: NA Date of Service: Nov 27, 2024 Billing Provider: LEYDI NIEVES Cardiology Common Codes: [id number] INP/OBS CARE (High) LEYDI NIEVES Nov 27, 2024 15:03
[2024-11-27] MEDS: HYDROcodone-ACET 5/325MG TAB PO PRN (19:45)
[2024-11-27] MEDS: ATORVASTATIN 20 MG TAB PO SCH (21:20)
--- NOTE | 2024-11-27 22:07 | DVHSR ---
APPROVED REPORT EXAM: Two-dimensional and M-mode echocardiogram with Doppler and color Doppler. Blood Pressure: 113/71 mmHg INDICATION Chest Pain RISK FACTORS Height: 5'2, Weight: 181 DIMENSIONS LVDd3.3 (3.8-5.7cm)LA (2D)3.5 (1.9-4.0cm)Aortic Root2.6 (2.0-3.7cm) LVDs2.4 (2.5-4.0cm)LA (MM) (1.9-4.0cm)Aortic Cusp Exc1.5 (1.5-2.0cm) EF (%) 55.0 (55-70%)Rt. Atrium2.8 (1.9-4.0cm)Asc. Aorta cm IVSd0.9 (0.7-1.1cm)RV (D)3.0 (1.8-2.4cm) PWd0.8 (0.7-1.1cm) Mitral Valve MitralMitral Stenosis E wave0.72m/sMV Mean GR.mmHg A wave0.63m/sMV Peak GR.mmHg E/A ratio1.12D MVAcm2 DECEL [id number] 1/2 Timems Aortic Valve Aortic ValveAortic Stenosis V10.81m/Owen Mean GR.3mmHg V21.15m/Owen Peak GR.5mmHg LVOT Diameter1.8 (1.8-2.4cm)Doppler AVA1.79cm2 Pulmonic Valve V20.85m/s Other Information Technically limited study due to body habitus. Conclusion LV EF IS 65% NORMAL VALVES NORMAL RV FUNCTION NO EFFUSION
--- NOTE | 2024-11-27 23:21 | DVHINCON2 ---
Date Seen: Nov 27, 2024 Referring Physician MD Jaden Reason for Consultation Chest pain History of Present Illness This is a 44-year-old Greek speaking female without any PMH who presented to the emergency room with a complaint of chest pain since Tuesday. Describes the chest pain as left-sided, unprovoked radiating to her left lip as a numbness sensation, radiating to the left upper and lower extremity as a tingling s ensation, and persistent until yesterday. The patient also reports a persistent headache for the past two months. At time of assessment she denied any further chest pain but did complain of tingling to her left fingers and left lower extremity. She underwent a 12 lead electrocardiogram revealing a normal sinus rhythm. Serial troponin levels are negative. Patient was admitted to the hospital. I am asked to consult on this patient. Past Medical History Past medical history reviewed. No other significant than mentioned above. Past Surgical History Appendectomy Bilateral tubal ligation Ectopic Family History: Family history: Hypertension Allergies: Coded Allergies: No Known Drug Allergy (Verified Allergy, Unknown, 08/01/15) Home Meds Active Scripts Docusate Sodium (COLACE CAPSULE) 100 Mg Cp, 100 MG PO BID, #60 CP Prov:ROSEANN FINLEY MD 08/04/15 Reported Medications Vit W/ Ferrous Fumara (Pnv Plus Multivi 27-1 & 312 mg) 1 Mis Mis, 1 TAB PO DAILY 12/17/16 Glyburide (Glyburide) 5 Mg Tab, 5 MG PO DAILY for 30 Days, MG 12/17/16 Current Medications Current Medications Medications (Trade) Dose Ordered Sig/Kyle Route PRN Reason Start Time Stop Time Status Last Admin Aspirin 81 mg DAILY PO 11/27/24 10:00 11/27/24 09:51 Atorvastatin Calcium (Lipitor) 40 mg HS PO 11/27/24 22:00 11/27/24 21:20 Review of Systems Constitutional: No symptom reported Ears, Nose, & Throat: No symptom reported Eyes: No symptom reported Neurological: No symptoms reported Pulmonary/Respiratory: No symptom reported Cardiovascular: Chest pain Gastrointestinal: No symptom reported Genitourinary: No symptom reported Musculoskeletal: Left upper and lower extremity numbness Skin: No symptom reported Psychiatric: No symptom reported Endocrine: No symptom reported Hemotologic/Lymphatic: No symptom reported Vital Signs Vital Signs Date Time Temp Pulse Resp B/P (MAP) Pulse Ox O2 Delivery O2 Flow Rate FiO2 11/27/24 21:00 98.1 66 16 102/74 (83) 94 98.1 11/27/24 08:00 Room Air* 0 21 Physical Exam CARDIOVASCULAR GENERAL: Alert and oriented x 3. No acute distress. Obese. EYES: PERRL, EOMI. Anicteric. HENT: Moist mucous membranes. LUNGS: Clear to auscultation bilaterally. Regular rate and rhythm. ABDOMEN: Soft, non-tender and non-distended. EXTREMITIES: No edema. NEUROLOGIC: No focal neurological deficits. SKIN: Warm, dry. Labs/Diagnostic Data Labs Test 11/27/24 05:55 11/26/24 16:53 11/26/24 15:54 Range/Units White Blood Count 7.0 4.4-10.8 10^3/uL Red Blood Count 4.39 4.0-5.20 10^6/uL Hemoglobin 13.5 12.2-16.2 g/dL Hematocrit 39.6 36.0-46.0 % Mean Corpuscular Volume 90.2 80.0-100.0 fL Mean Corpuscular Hemoglobin 30.8 28.0-32.0 pg Mean Corpuscular Hemoglobin Concent 34.2 32.0-36.0 g/dL Red Cell Distribution Width 13.7 11.8-14.3 % Platelet Count 291 140-450 10^3/uL Mean Platelet Volume 9.2 6.9-10.8 fL Neutrophils (%) (Auto) 61.5 37.0-80.0 % Lymphocytes (%) (Auto) 29.6 10.0-50.0 % Monocytes (%) (Auto) 6.9 0.0-12.0 % Eosinophils (%) (Auto) 1.7 0.0-7.0 % Basophils (%) (Auto) 0.3 0.0-2.0 % Neutrophils # (Auto) 4.3 1.6-8.6 10 ^3/uL Lymphocytes # (Auto) 2.1 0.4-5.4 10 ^3/uL Monocytes # (Auto) 0.5 0-1.3 10 ^3/uL Eosinophils # (Auto) 0.1 0-0.8 10 ^3/uL Basophils # (Auto) 0 0-0.2 10 ^3/uL Nucleated Red Blood Cells 0.1 % Sodium Level 140 136-145 mmol/L Potassium Level 4.0 3.5-5.1 mmol/L Chloride Level 104 98-107 mmol/L Carbon Dioxide Level 26 20-31 mmol/L Anion Gap 10 5-15 Blood Urea Nitrogen 9 9-23 mg/dL Creatinine 0.91 0.550-1.02 mg/dL Glomerular Filtration Rate Calc 81 >90 mL/min BUN/Creatinine Ratio 9.9 L 10.0-20.0 Serum Glucose 105 74-106 mg/dL Hemoglobin A1c 5.4 <5.7 % A1C Calcium Level 9.5 8.7-10.4 mg/dL Total Bilirubin 0.2 0.2-1.0 mg/dL Aspartate Amino Transferase (AST) 21 13-40 U/L Alanine Aminotransferase (ALT) 37 7-40 U/L Alkaline Phosphatase 86 46-116 U/L Total Protein 7.4 5.7-8.2 g/dL Albumin 4.2 3.2-4.8 g/dL Triglycerides Level 292 H < 150 mg/dL Cholesterol Level 221 H < 200 mg/dL LDL Cholesterol 158 H < 100 mg/dL HDL Cholesterol 42 40-59 mg/dL Thyroid Stimulating Hormone (TSH) 2.81 0.55-4.78 uIU/mL Troponin I High Sensitivity < 3 L </=34 ng/L D-Dimer, Quantitative 1.15 H 0.0-0.49 mg/L FEU Assessment Noncardiac chest pain. Rule out structural heart disease. Rule out acute CVA. Dyslipidemia, newly diagnosed. Obesity. Plan/Recommendation I agree with your ongoing assessment and care of plan. Patient has been seen by Zonia Joaquin NP on my behalf. We have discussed the plan with the patient. The patient presents with noncardiac chest pain. We will continue further cardiac evaluation with a transthoracic echocardiogram to rule out structural heart disease. Given persistent headache with left-sided numbness/paresthesia rule out acute CVA/TIA. Initiate lipid lowering agent given newly diagnosed dyslipidemia. Additional plan as per the hospital course. Plan discussed with: Patient NYHA Physical activity limitations: NA Date of Service: Nov 27, 2024 Billing Provider: KRISTIE ROBERTSON MD Cardiology Common Codes: [id number] INP/OBS CARE (High) Cardiology Consultation Codes: [id number] CONSULT <45MIN KRISTIE ROBERTSON MD Nov 27, 2024 23:21
[2024-11-28 01:00] VITALS: BP 108/60; PULSE 66; RESP 16; TEMP 97.7; O2SAT 95
[2024-11-28 05:00] VITALS: BP 102/61; PULSE 75; RESP 16; TEMP 98.2; O2SAT 96
[2024-11-28 08:03] VITALS: O2SAT 98
--- NOTE | 2024-11-28 08:56 | ECG ---
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
[2024-11-28 09:00] VITALS: BP 111/67; PULSE 62; RESP 16; TEMP 98.2; O2SAT 98
[2024-11-28] MEDS ORDERED: ATOR-507 PO (10:13)
--- NOTE | 2024-11-28 10:16 | DVHPN2 ---
Reviewed: Care Plan, H&P, Labs, Medications, Previous Orders, Radiology Changes from previous H/P or p: No Changes Eyes: No Pain, No Vision change, No Conjunctivae inflammation, No Eyelid inflammation, No Other, No Redness ENT: No Ear pain, No Ear discharge, No Nose pain, No Nose discharge, No Nose congestion, No Mouth pain, No Mouth swelling, No Throat pain, No Throat swelling, No Other Cardiovascular: Chest Pain, Palpitations; No Orthopnea, No Paroxysmal Noc. Dyspnea, No Edema, No Lt Headedness; Other (Left arm pain) Respiratory: No Cough, No Dry; Shortness of breath; No SOB with excertion, No Wheezing, No Hemoptysis, No Pleuritic Pain, No Sputum; Other (SOB at rest) Gastrointestinal: No Nausea, No Vomiting, No Abdominal Pain, No Diarrhea, No Constipation, No Melena, No Hematochezia, No Other Genitourinary: No Dysuria, No Frequency, No Incontinence, No Hematuria, No Retention, No Other Musculoskeletal: No other, No neck pain, No shoulder pain, No arm pain, No back pain, No hand pain, No leg pain, No foot pain Skin: No Rash, No Lesions, No Jaundice, No Bruising, No Other Objective Vitals Vital Signs Date Time Temp Pulse Resp B/P (MAP) Pulse Ox O2 Delivery O2 Flow Rate FiO2 11/28/24 09:00 98.2 62 16 111/67 (82) 98 98.2 11/28/24 08:03 Room Air* 0 21 Intake/Output Intake and Output 11/28/24 07:00 Intake Total 500 ml Balance 500 ml Intake Oral 500 ml # Voids 4 Medications Current Medications Medications Dose Ordered Sig/Kyle Route Start Time Stop Time Status Last Admin Dose Admin Aspirin 81 mg DAILY PO 11/27/24 10:00 11/28/24 09:22 81 MG Sodium Chloride 10 ml Q8HR IV 11/26/24 22:00 11/28/24 06:00 10 ML Acetaminophen/ Hydrocodone Bitart 1 tab Q4HP PRN PO 11/26/24 19:45 11/27/24 19:45 1 TAB Ondansetron HCl 4 mg Q4HP PRN IV 11/26/24 19:45 11/27/24 13:51 4 MG Docusate Sodium 100 mg BIDPRN PRN PO 11/26/24 19:45 Acetaminophen 650 mg Q6HP PRN PO 11/26/24 19:45 Nitroglycerin 0.4 mg Q5MINP PRN SL 11/26/24 22:00 11/26/24 23:17 0.4 MG Morphine Sulfate 2 mg Q30M PRN IV 11/26/24 22:00 Atorvastatin Calcium 40 mg HS PO 11/27/24 22:00 11/27/24 21:20 40 MG Laboratory Results Laboratory Tests 11/27/24 05:55 Urinalysis Test 11/26/24 15:54 Urine Test Pending Labs and/or images reviewed: Labs reviewed by me, Image(s) reviewed by me Assessment/Plan Assessment/Plan Noncardiac chest Troponin negative x3 cardiology consult for , echo 55 percent ejection fraction Headache left-sided, CT head negative Hyperlipidemia with cholesterol of more [id number], new diagnosis: Lipitor 40 mg p.o.daily Elevated D-dimer 1.15, PE ruled out Patient feels better and wants to go home Plan discussed with: Patient My Orders Orders - MIA ELIZONDO MD Procedure Category Date Status Time * Cardiology Consult CONS 11/27/24 Transmitted 13:02 Drug Screen LAB 11/27/24 Logged 13:05 * [employer] CONS 11/27/24 Transmitted Consult Date of Service: Nov 28, 2024 Billing Provider: MIA ELIZONDO MD Common Visit Codes: [id number] INP/OBS CARE(HIGH) MIA ELIZONDO MD Nov 28, 2024 10:16
--- NOTE | 2024-11-28 10:20 | DVHDS2 ---
Discharge Summary Date of Admission Nov 26, 2024 at 21:55 Date of Discharge: Nov 28, 2024 Admitting Diagnosis Chest pain Wounds: None Labs/Diagnostic Data: Laboratory Results Test 11/27/24 05:55 11/26/24 16:53 11/26/24 15:54 White Blood Count 7.0 10^3/uL (4.4-10.8) Red Blood Count 4.39 10^6/uL (4.0-5.20) Hemoglobin 13.5 g/dL (12.2-16.2) Hematocrit 39.6 % (36.0-46.0) Mean Corpuscular Volume 90.2 fL (80.0-100.0) Mean Corpuscular Hemoglobin 30.8 pg (28.0-32.0) Mean Corpuscular Hemoglobin Concent 34.2 g/dL (32.0-36.0) Red Cell Distribution Width 13.7 % (11.8-14.3) Platelet Count 291 10^3/uL (140-450) Mean Platelet Volume 9.2 fL (6.9-10.8) Neutrophils (%) (Auto) 61.5 % (37.0-80.0) Lymphocytes (%) (Auto) 29.6 % (10.0-50.0) Monocytes (%) (Auto) 6.9 % (0.0-12.0) Eosinophils (%) (Auto) 1.7 % (0.0-7.0) Basophils (%) (Auto) 0.3 % (0.0-2.0) Neutrophils # (Auto) 4.3 10 ^3/uL (1.6-8.6) Lymphocytes # (Auto) 2.1 10 ^3/uL (0.4-5.4) Monocytes # (Auto) 0.5 10 ^3/uL (0-1.3) Eosinophils # (Auto) 0.1 10 ^3/uL (0-0.8) Basophils # (Auto) 0 10 ^3/uL (0-0.2) Nucleated Red Blood Cells 0.1 % Sodium Level 140 mmol/L (136-145) Potassium Level 4.0 mmol/L (3.5-5.1) Chloride Level 104 mmol/L (98-107) Carbon Dioxide Level 26 mmol/L (20-31) Anion Gap 10 (5-15) Blood Urea Nitrogen 9 mg/dL (9-23) Creatinine 0.91 mg/dL (0.550-1.02) Glomerular Filtration Rate Calc 81 mL/min (>90) BUN/Creatinine Ratio 9.9 (10.0-20.0) Serum Glucose 105 mg/dL (74-106) Hemoglobin A1c 5.4 % A1C (<5.7) Calcium Level 9.5 mg/dL (8.7-10.4) Total Bilirubin 0.2 mg/dL (0.2-1.0) Aspartate Amino Transferase (AST) 21 U/L (13-40) Alanine Aminotransferase (ALT) 37 U/L (7-40) Alkaline Phosphatase 86 U/L (46-116) Total Protein 7.4 g/dL (5.7-8.2) Albumin 4.2 g/dL (3.2-4.8) Triglycerides Level 292 mg/dL (< 150) Cholesterol Level 221 mg/dL (< 200) LDL Cholesterol 158 mg/dL (< 100) HDL Cholesterol 42 mg/dL (40-59) Thyroid Stimulating Hormone (TSH) 2.81 uIU/mL (0.55-4.78) Troponin I High Sensitivity < 3 ng/L (</=34) D-Dimer, Quantitative 1.15 mg/L FEU (0.0-0.49) Other Laboratory Tests 11/27/24 05:55 Brief Hx & Hospital Course: 44-year-old female with no previous medical history came in for chest pain troponin negative x3 echo 55 percent ejection fraction seen by Cardiology Dr. Sam advised noncardiac chest pain also complained of mild headache in the left side CT head is negative cholesterol is more than 200 started on Lipitor 40 mg p.o. daily D-dimer elevated 1.15 PE ruled out. Patient is afebrile stable vital signs and wants to go home. Discharged home Lipitor prescription transmitted to pharmacy Consults/Reason for consult Cardiology Operations or Procedures Echocardiogram CT head Condition at Discharge: Fair Final Diagnosis/Problems List Noncardiac chest Troponin negative x3 cardiology consult for , echo 55 percent ejection fraction Headache left-sided, CT head negative Hyperlipidemia with cholesterol of more [id number], new diagnosis: Lipitor 40 mg p.o.daily Elevated D-dimer 1.15, PE ruled ou Discharge Disposition: Home Discharge Instruct/Medications Diet: Regular Activity: Light activity Follow Up/Referral: Use medications as prescribed Follow up with the primary Dr Medications: Lipitor [facility] Scheduled Atorvastatin Calcium (Lipitor), 1 TAB PO QPM Docusate Sodium (Colace Capsule), 100 MG PO BID Glyburide (Glyburide), 5 MG PO DAILY, (Reported) Vit W/ Ferrous Fumara (Pnv Plus Multivi 27-1 & 312 mg), 1 TAB PO DAILY, (Reported) 35 (Time taken for discharge summary 35 minutes) Discharge Statement: "Patient was advised to return to the ER or call 911 if any headaches, dizziness, shortness of breath, chest pain, abdominal pain, bleeding, fevers, or worsening of medical condition. Patient was counseled about treatment plan, medications, possible side effects, patientverbalized understanding. All questions were answered to the best of my ability. This discharge took greater then 30 minutes in planning, reviewing documentation, counseling the patient, and discussing with other team members." ASSESSMENT ASSESSMENT Hospital Course Improved Assessment Noncardiac chest Troponin negative x3 cardiology consult for , echo 55 percent ejection fraction Headache left-sided, CT head negative Hyperlipidemia with cholesterol of more [id number], new diagnosis: Lipitor 40 mg p.o.daily Elevated D-dimer 1.15, PE ruled ou Date of Service: Nov 28, 2024 Billing Provider: MIA ELIZONDO MD Common Visit Codes: 46852-COE/OBS DISCH DAY >30min MIA ELIZONDO MD Nov 28, 2024 10:20
[2024-11-28 11:07] VITALS: BP 109/64; TEMP 36.8
[2024-11-28] MEDS: ACETAMINOPHEN 325 MG TAB PO PRN (11:53)
[2024-11-28 12:23] VITALS: BP 100/72; PULSE 69; RESP 17; TEMP 98.5; O2SAT 97
--- NOTE | 2024-11-28 22:05 | DVHPN2 ---
Progress Note - Dictate Date Seen: Nov 28, 2024 Medical Necessity Reason Pt with a Central, PICC or Fol: No Subjective Patient was seen and evaluated in follow up. No overnight events. Echocardiogram shoed an EF of 65%. Patient is cardiac stable for discharge. Telemetry reviewed. vital signs Vital Sign Date Time Temp Pulse Resp B/P (MAP) Pulse Ox O2 Delivery O2 Flow Rate FiO2 11/28/24 12:23 98.5 69 17 100/72 (81) 97 98.5 11/28/24 08:03 Room Air* 0 21 Total Intake and Output 11/27/24 11/27/24 11/28/24 15:00 23:00 07:00 Intake Total 300 ml 200 ml Balance 300 ml 200 ml objective CARDIOVASCULAR GENERAL: Alert and oriented x 3. No acute distress. Obese. EYES: PERRL, EOMI. Anicteric. HENT: Moist mucous membranes. LUNGS: Clear to auscultation bilaterally. Regular rate and rhythm. ABDOMEN: Soft, non-tender and non-distended. EXTREMITIES: No edema. NEUROLOGIC: No focal neurological deficits. SKIN: Warm, dry. laboratory and microbiology Laboratory Tests 11/27/24 05:55 Test 11/27/24 05:55 Range/Units Serum Glucose 105 74-106 mg/dL Problem List Noncardiac chest pain. Rule out structural heart disease. Rule out acute CVA. Dyslipidemia, newly diagnosed. Obesity. Assessment/Plan Continued all current supportive medical care. Nitro SL. Aspirin,Lipitor. Morphine and [place] for pain management. Additional plan as per the hospital course. Plan discussed with: Patient KRISTIE ROBERTSON MD Nov 28, 2024 14:54
== END 2024-11-28 12:30 | disposition home or self-care (01) | DRG 203 ==
LOC: ER 15:37 → OVERFLOW 21:55 → TELE-EAST 11-27 02:46
PROVIDERS: ADMIT Family Medicine; ATTEND Family Medicine
DX: M94.0 Chondrocostal junction syndrome [Tietze] (principal); E66.9 Obesity, unspecified; Z68.33 Body mass index [BMI] 33.0-33.9, adult; E78.5 Hyperlipidemia, unspecified; R79.89 Other specified abnormal findings of blood chemistry; Z87.59 Personal history of other complications of pregnancy, childbirth and the puerperium; Z82.49 Family history of ischemic heart disease and other diseases of the circulatory system; Z79.899 Other long term (current) drug therapy
CPT/HCPCS: 36415; 70450; 71045; 71275; 80048; 80053; 80061; 83036; 84443; 84484; 85025; 85379; 93005; 93306; 99291; G0378; J2405